=== PATIENT | female | born 1995 | race American Indian/Alaskan Native ===

== ENCOUNTER 2024-03-25 14:18 | Outpatient (CLI) | payer MEDICAID | END 2024-03-25 23:59 | disposition home or self-care (01) | LOC: RAD 14:18 | PROVIDERS: ATTEND Physician Assistant | DX: O09.92 Supervision of high risk pregnancy, unspecified, second trimester (principal); Z3A.23 23 weeks gestation of pregnancy | CPT/HCPCS: 76811 ==